=== PATIENT | female | born 1940 | race African-American/Black ===

== ENCOUNTER 2017-12-30 10:52 | Emergency (ER) | payer OTHER ==
[~2017-12-30] VITALS: Ht 167.6 cm; Wt 85.7 kg
[2017-12-30] MEDS ORDERED: UNITHROID75 MCG PO (11:00)
[2017-12-30] MEDS ORDERED: PROTONIX40 MG PO (11:00)
[2017-12-30] MEDS ORDERED: CARAFATE1 GM PO (11:00)
[2017-12-30] MEDS ORDERED: DIGOX125 MCG PO (11:01)
[2017-12-30] MEDS ORDERED: BISOPROLOL FUMAR5 MG PO (11:01)
[2017-12-30] MEDS ORDERED: ESCITALOPRAM OXA5 MG PO (11:02)
[2017-12-30] MEDS ORDERED: PROPAFENONE HC150 MG PO (11:02)
[2017-12-30] MEDS ORDERED: ELIQUIS2.5 MG PO (11:02)
[2017-12-30] MEDS ORDERED: LOSARTAN POTASS25 MG PO (11:02)
== END 2017-12-30 13:42 | disposition home or self-care (01) ==
LOC: ER 10:52
DX: S01.02XA Laceration with foreign body of scalp, initial encounter (principal); W26.8XXA Contact with other sharp object(s), not elsewhere classified, initial encounter; Y93.89 Activity, other specified; Y92.814 Boat as the place of occurrence of the external cause; Y99.8 Other external cause status